=== PATIENT | female | born 1975 | race Caucasian/White ===

== ENCOUNTER 2016-10-16 22:36 | Emergency (ER) | payer OTHER ==
[~2016-10-16] VITALS: Ht 165.1 cm; Wt 91.8 kg
[~2016-10-16 22:36] MED LIST: ANTIVERT 25MG25 MG PO; ATIVAN; AZULFIDINE500 MG/TAB PO; CELEBREX 200MG200 MG; COMBIVENT INH14.7 GM IH; FERROUS SU325 MG/TAB PO; FERROUS SULFATE65 MG PO; FLEXERIL 1010 MG/TAB PO; LEVOTHYROXINE PO; MACROBID100 MG PO; NAPROSYN500 MG PO; OSCAL 500 TAB500 MG PO; PERCOCET 325 MG1 TA2 PO; PRILOSEC 20MG20 MG PO; SYNTHROID 0.10.15 MG PO; SYNTHROID0.175 MG PO; TYLENOL/CODEINE1 ML PO; VALIUM 5MG T5 MG/TAB PO; ZITHROMAX 250M250 MG PO
[2016-10-16 22:37] VITALS: BP 108/63; PULSE 87; TEMP 99.1
[2016-10-16] MEDS ORDERED: PEN-VEE K500 MG PO (22:59)
[2016-10-16] MEDS ORDERED: NORCO 325 MG-51 TAB PO (22:59)
== END 2016-10-16 23:25 | disposition home or self-care (01) ==
LOC: COL.ER 22:36
DX: R68.84 Jaw pain (principal); H92.02 Otalgia, left ear; R51 Headache

== ENCOUNTER → 2016-11-29 | Outpatient (CLI) | payer OTHER ==
[~2016-11-29] MED LIST changes: +NORCO 325 MG-51 TAB PO; +PEN-VEE K500 MG PO
== END ==
LOC: MC.RAD 11-08 13:40
DX: Z12.31 Encounter for screening mammogram for malignant neoplasm of breast (principal)

== ENCOUNTER → 2017-05-02 | Outpatient (CLI) | payer OTHER | LOC: COL.VAS 13:15 | DX: M79.605 Pain in left leg (principal) ==

== ENCOUNTER 2017-09-09 19:27 | Emergency (ER) | payer OTHER ==
[~2017-09-09] VITALS: Ht 165.1 cm; Wt 90.5 kg
[2017-09-09 19:34] VITALS: TEMP 98.2
[2017-09-09] MEDS ORDERED: NORCO 325 MG-51 TAB PO (19:38)
[2017-09-09] MEDS ORDERED: METHOTREXA2.5 MG/TAB (19:38)
[2017-09-09] MEDS ORDERED: FOLIC ACID0.4 MG (19:39)
[2017-09-09] MEDS ORDERED: DESYREL 50MG50 MG PO (19:39)
[2017-09-09 19:59] LABS: COLLECTION METHOD CLEAN CATCH
[2017-09-09 20:00] LABS: BASO # 0.1 (0.0-0.2); BASO % 0.6 % (0.0-2.0); EOS # 0.1 (0.0-0.7); EOS % 1.8 % (0-4.0); GRAN # 4.7 (1.4-6.5); GRAN % 59.9 % (42.2-75.2); HEMATOCRIT 38.1 % (37.0-47.0); HEMOGLOBIN 12.8 g/dl (12.5-16.0); LYMPH # 2.4 (1.2-3.4); MEAN CELL VOLUME 89 fl (80.0-100.0); MEAN CORPUSCULAR HEMOGLOBIN 30 pg (27.0-31.0); MEAN CORPUSCULAR HGB CONC 34 g/dl (33.0-37.0); MEAN PLATELET VOLUME 10.1 fl (7.4-10.4); MONO # 0.5 (0.1-0.6); MONO % 6.3 % (1.7-9.3); PLATELET COUNT 277 K/mm3 (130-400); RED BLOOD COUNT 4.29 M/mm3 (4.10-5.30); REDCELL DISTRIBUTION WIDTH-CV 14.4 % (11.5-14.5)
[2017-09-09 20:04] LABS: PH 7 (5-8); SQUAMOUS EPITHELIAL 0-2 /hpf; URINE APPEARANCE Clear; URINE BACTERIA None Seen /hpf; URINE BILIRUBIN Negative (NEGATIVE); URINE BLOOD 2+ (NEGATIVE); URINE COLOR Colorless; URINE GLUCOSE Negative (NEGATIVE); URINE KETONE Negative (NEGATIVE); URINE LEUKOCYTE ESTERASE Negative (NEGATIVE); URINE NITRATE Negative (NEGATIVE); URINE PROTEIN(semi-quant) Negative (NEGATIVE); URINE RBC 0-2 /hpf; URINE UROBILINOGEN Negative (NEGATIVE)
[2017-09-09 20:38] LABS: ALANINE AMINOTRANSFERASE 29 U/L (9-52); ALKALINE PHOSPHATASE 87 U/L (50-136); ANION GAP 12 mmol/L (7-16); AST,SGOT 36 U/L (15-37); BILIRUBIN,TOTAL 0.5 mg/dL (0.0-1.0); BLOOD UREA NITROGEN 12 mg/dL (7-17); CARBON DIOXIDE 22 mmol/L (22-30); CHLORIDE 106 mmol/L (98-107); CREATININE, serum 0.71 mg/dL (0.52-1.25); GLUCOSE 79 mg/dL (74-106); POTASSIUM 3.9 mmol/L (3.4-5.0); SODIUM 140 mmol/L (137-145); TOTAL PROTEIN 8.1 gm/dL (6.4-8.2)
[2017-09-09 20:48] LABS: TROPONIN-I < 0.012 ng/mL (0.000-0.034)
[2017-09-09] MEDS ORDERED: ANTIVERT 25MG25 MG PO (21:34)
[2017-09-09] MEDS ORDERED: ZOFRAN 4MG T4 MG/TAB PO (21:34)
[2017-09-09 22:04] VITALS: BP 109/80; PULSE 72
== END 2017-09-09 22:05 | disposition home or self-care (01) ==
LOC: COL.ER 19:27
PROVIDERS: Emergency Medicine
DX: H81.392 Other peripheral vertigo, left ear (principal); R07.89 Other chest pain; R20.2 Paresthesia of skin; K21.9 Gastro-esophageal reflux disease without esophagitis; E03.9 Hypothyroidism, unspecified; M06.9 Rheumatoid arthritis, unspecified; F17.210 Nicotine dependence, cigarettes, uncomplicated; Z90.710 Acquired absence of both cervix and uterus; Z98.51 Tubal ligation status; Z90.49 Acquired absence of other specified parts of digestive tract; Z98.890 Other specified postprocedural states
CPT/HCPCS: J1885; J2405; J7030

== ENCOUNTER → 2017-12-30 | Outpatient (CLI) | payer OTHER ==
[~2017-12-30] MED LIST changes: +DESYREL 50MG50 MG PO; +FOLIC ACID0.4 MG; +METHOTREXA2.5 MG/TAB; +ZOFRAN 4MG T4 MG/TAB PO
== END ==
LOC: MC.RAD 12:54
DX: Z12.31 Encounter for screening mammogram for malignant neoplasm of breast (principal)

== ENCOUNTER 2019-02-26 23:57 | Emergency (ER) | payer OTHER ==
[~2019-02-26] VITALS: Ht 165.1 cm; Wt 100.0 kg
[2019-02-27 00:07] VITALS: BP 141/83; TEMP 97.6
[2019-02-27 02:07] VITALS: PULSE 79
== END 2019-02-27 02:05 | disposition home or self-care (01) ==
LOC: COL.ER 23:57
DX: G43.909 Migraine, unspecified, not intractable, without status migrainosus (principal); J45.909 Unspecified asthma, uncomplicated; E03.9 Hypothyroidism, unspecified; F17.210 Nicotine dependence, cigarettes, uncomplicated; Z90.89 Acquired absence of other organs; Z90.710 Acquired absence of both cervix and uterus
CPT/HCPCS: J1200; J1885; J2765; J7030

== ENCOUNTER → 2019-04-23 | Outpatient (CLI) | payer OTHER | LOC: MC.RAD 11:45 | DX: Z12.31 Encounter for screening mammogram for malignant neoplasm of breast (principal) ==

== ENCOUNTER 2019-07-07 10:39 | Emergency (ER) | payer OTHER ==
[~2019-07-07] VITALS: Ht 165.1 cm; Wt 100.0 kg
[2019-07-07 10:48] VITALS: TEMP 96.5
[2019-07-07] MEDS ORDERED: CORGARD20 MG (11:17)
[2019-07-07] MEDS ORDERED: XANAX .25M0.25 MG/TA (11:18)
[2019-07-07] MEDS ORDERED: HUMIRA PEN40 MG/0.4 SQ (11:20)
[2019-07-07] MEDS ORDERED: CORGARD40 MG PO (11:21)
[2019-07-07] MEDS ORDERED: IMITREX100 MG PO (11:22)
[2019-07-07] MEDS ORDERED: FLEXERIL 1010 MG/TAB PO (11:22)
[2019-07-07] MEDS ORDERED: ARAVA 20MG TABL20 MG PO (11:23)
[2019-07-07 12:01] LABS: BASO # 0.1 (0.0-0.2); BASO % 0.9 % (0.0-2.0); EOS # 0.2 (0.0-0.7); EOS % 2.6 % (0-4.0); GRAN # 4.1 (1.4-6.5); GRAN % 61.9 % (42.2-75.2); HEMATOCRIT 42.2 % (37.0-47.0); HEMOGLOBIN 13.8 g/dl (12.5-16.0); LYMPH # 1.8 (1.2-3.4); LYMPH % 26.8 % (20.0-51.0); MEAN CELL VOLUME 89 fl (80.0-100.0); MEAN CORPUSCULAR HEMOGLOBIN 29 pg (27.0-31.0); MEAN CORPUSCULAR HGB CONC 33 g/dl (33.0-37.0); MEAN PLATELET VOLUME 9.7 fl (7.4-10.4); MONO # 0.5 (0.1-0.6); MONO % 7.6 % (1.7-9.3); PLATELET COUNT 250 K/mm3 (130-400); RED BLOOD COUNT 4.73 M/mm3 (4.10-5.30); REDCELL DISTRIBUTION WIDTH-CV 13.2 % (11.5-14.5)
[2019-07-07 12:14] LABS: ALANINE AMINOTRANSFERASE 54 U/L (9-52); ALBUMIN 3.8 gm/dL (3.5-5.0); ALKALINE PHOSPHATASE 83 U/L (50-136); ANION GAP 7 mmol/L (7-16); AST,SGOT 39 U/L (15-37); BILIRUBIN,TOTAL 0.6 mg/dL (0.0-1.0); BLOOD UREA NITROGEN 8 mg/dL (7-17); CALCIUM 8.6 mg/dL (8.4-10.2); CARBON DIOXIDE 25 mmol/L (22-30); CHLORIDE 107 mmol/L (98-107); CREATININE, serum 0.58 (0.52-1.25); GLUCOSE 96 mg/dL (74-106); SODIUM 139 mmol/L (137-145); TOTAL PROTEIN 7.1 gm/dL (6.4-8.2)
[2019-07-07 12:33] LABS: C-REACTIVE PROTEIN < 0.5 mg/dL (0.0-0.9)
[2019-07-07 13:36] LABS: ERYTHROCYTE SEDIMENTATION RATE 5 mm/hr (0-20)
[2019-07-07] MEDS ORDERED: FIORICET 325 MG1 TA1 PO (14:10)
[2019-07-07] MEDS ORDERED: ZOFRAN ODT4 MG PO (14:10)
[2019-07-07 14:20] VITALS: BP 108/65; PULSE 60
== END 2019-07-07 14:25 | disposition home or self-care (01) ==
LOC: COL.ER 10:39
PROVIDERS: Physician Assistant
DX: G43.909 Migraine, unspecified, not intractable, without status migrainosus (principal); M06.9 Rheumatoid arthritis, unspecified; F17.210 Nicotine dependence, cigarettes, uncomplicated
CPT/HCPCS: J0595; J1200; J1885; J2550; J7030

== ENCOUNTER 2019-07-17 22:12 | Emergency (ER) | payer OTHER ==
[~2019-07-17] VITALS: Ht 165.1 cm; Wt 100.0 kg
[~2019-07-17 22:12] MED LIST changes: +ARAVA 20MG TABL20 MG PO; +CORGARD20 MG; +CORGARD40 MG PO; -DESYREL 50MG50 MG PO; +DESYREL DIVIDO150 M1 PO; +FIORICET 325 MG1 TA1 PO; +HUMIRA PEN40 MG/0.4 SQ; +IMITREX100 MG PO; +XANAX .25M0.25 MG/TA; +ZOFRAN ODT4 MG PO
[2019-07-17 22:25] VITALS: TEMP 98
[2019-07-18 00:26] LABS: BASO # 0.1 (0.0-0.2); BASO % 0.8 % (0.0-2.0); EOS # 0.2 (0.0-0.7); EOS % 2.6 % (0-4.0); GRAN # 3.8 (1.4-6.5); GRAN % 45.1 % (42.2-75.2); HEMATOCRIT 41.8 % (37.0-47.0); LYMPH # 3.4 (1.2-3.4); LYMPH % 41.1 % (20.0-51.0); MEAN CELL VOLUME 90 fl (80.0-100.0); MEAN CORPUSCULAR HEMOGLOBIN 30 pg (27.0-31.0); MEAN CORPUSCULAR HGB CONC 34 g/dl (33.0-37.0); MEAN PLATELET VOLUME 9.7 fl (7.4-10.4); MONO # 0.9 (0.1-0.6); MONO % 10.2 % (1.7-9.3); PLATELET COUNT 275 K/mm3 (130-400); RED BLOOD COUNT 4.65 M/mm3 (4.10-5.30); REDCELL DISTRIBUTION WIDTH-CV 13.2 % (11.5-14.5)
[2019-07-18] MEDS ORDERED: PRIL40 PO (00:29)
[2019-07-18] MEDS ORDERED: PRILOSEC 20MG20 MG PO (00:29)
[2019-07-18] MEDS ORDERED: XANAX .25M0.25 MG/TA PO (00:32)
[2019-07-18] MEDS ORDERED: EFFEXOR 3737.5 MG/TA PO (00:32)
[2019-07-18] MEDS ORDERED: FOLIC ACID 11 MG/TA1 PO (00:33)
[2019-07-18 00:34] LABS: ALANINE AMINOTRANSFERASE 44 U/L (9-52); ALBUMIN 4.1 gm/dL (3.5-5.0); ALKALINE PHOSPHATASE 89 U/L (50-136); ANION GAP 7 mmol/L (7-16); AST,SGOT 31 U/L (15-37); BILIRUBIN,TOTAL 0.6 mg/dL (0.0-1.0); BLOOD UREA NITROGEN 7 mg/dL (7-17); CALCIUM 8.5 mg/dL (8.4-10.2); CARBON DIOXIDE 25 mmol/L (22-30); CHLORIDE 107 mmol/L (98-107); CREATININE, serum 0.57 (0.52-1.25); GLUCOSE 84 mg/dL (74-106); POTASSIUM 3.5 mmol/L (3.4-5.0); PROTHROMBIN TIME 11.2 SECONDS (9.7-12.8); SODIUM 138 mmol/L (137-145); TOTAL PROTEIN 7.5 gm/dL (6.4-8.2)
[2019-07-18 00:45] LABS: TROPONIN-I < 0.012 ng/mL (0.000-0.035)
[2019-07-18 02:30] VITALS: BP 152/92; PULSE 63
== END 2019-07-18 02:34 | disposition home or self-care (01) ==
LOC: COL.ER 22:12
PROVIDERS: Emergency Medicine
DX: I10 Essential (primary) hypertension (principal); G43.909 Migraine, unspecified, not intractable, without status migrainosus; F41.9 Anxiety disorder, unspecified; M06.9 Rheumatoid arthritis, unspecified; F17.210 Nicotine dependence, cigarettes, uncomplicated; Z90.710 Acquired absence of both cervix and uterus; Z90.89 Acquired absence of other organs
CPT/HCPCS: J2060

== ENCOUNTER → 2019-12-03 | Outpatient (CLI) | payer OTHER ==
[~2019-12-03] MED LIST changes: +EFFEXOR 3737.5 MG/TA PO; +FOLIC ACID 11 MG/TA1 PO; +PRIL40 PO; +XANAX .25M0.25 MG/TA PO
== END ==
LOC: COL.LAB 15:40
DX: Z20.828 Contact with and (suspected) exposure to other viral communicable diseases (principal)

== ENCOUNTER 2020-01-28 07:06 | Day surgery (SDC) | payer OTHER ==
[~2020-01-28] VITALS: Ht 165.2 cm; Wt 107.0 kg
[2020-01-28] VITALS (9 sets, daily range): BP systolic 103–142; BP diastolic 68–85; PULSE 58–64; TEMP 97.8
[~2020-01-28 07:06] MED LIST changes: -FOLIC ACID0.4 MG; +FOLIC ACID0.4 MG PO
[2020-01-28] MEDS ORDERED: ASPIRIN E.C. 8181 MG PO (07:28)
[2020-01-28] MEDS ORDERED: NORVASC 5MG5 MG/TAB PO (07:28)
[2020-01-28] MEDS ORDERED: CELEXA40 MG PO (07:30)
[2020-01-28 07:48] LABS: HEMATOCRIT 41.5 % (37.0-47.0); HEMOGLOBIN 13.5 g/dl (12.5-16.0); MEAN CELL VOLUME 93 fl (80.0-100.0); MEAN CORPUSCULAR HEMOGLOBIN 30 pg (27.0-31.0); MEAN CORPUSCULAR HGB CONC 33 g/dl (33.0-37.0); MEAN PLATELET VOLUME 10.1 fl (7.4-10.4); PLATELET COUNT 210 K/mm3 (130-400); RED BLOOD COUNT 4.45 M/mm3 (4.10-5.30); REDCELL DISTRIBUTION WIDTH-CV 14.7 % (11.5-14.5)
[2020-01-28 07:53] LABS: INR 0.9 (0.8-3.0); PROTHROMBIN TIME 9.8 SECONDS (9.7-12.8)
[2020-01-28 08:08] LABS: CALCIUM 8.2 mg/dL (8.4-10.2); CREATININE, serum 0.69 (0.52-1.25); POTASSIUM 4.1 mmol/L (3.4-5.0)
--- NOTE | 2020-01-28 08:54 | NUR ---
SEE MERGE DOCUMENTATION FOR MEDICATION ADMINISTRATION TIMES AND INTRA/POST PROCEDURE SEDATION ASSESSMENTS. RIGHT HAND BARBEAU TEST POSITIVE.
--- NOTE | 2020-01-28 09:30 | NUR ---
Report from Stephan DEGROOT. Transferred by bed from bobcat driver/labor. 12 cc in right Tband, good pulses and Cap refill < 3 secs. VSS. Will monitor
--- NOTE | 2020-01-28 11:45 | NUR ---
INTdiscontinued intact. Right Tband deflated of 12 cc air. Discharge instructions given.
--- NOTE | 2020-01-28 12:04 | NUR ---
Transferred to private car by kendra
== END 2020-01-28 12:05 | disposition home or self-care (01) ==
LOC: COL.CAR 07:06
PROVIDERS: Internal Medicine Cardiovascular Disease
DX: R07.9 Chest pain, unspecified (principal); R94.39 Abnormal result of other cardiovascular function study; I10 Essential (primary) hypertension; E03.9 Hypothyroidism, unspecified; G43.909 Migraine, unspecified, not intractable, without status migrainosus; F32.9 Major depressive disorder, single episode, unspecified; F41.0 Panic disorder [episodic paroxysmal anxiety]; Z88.3 Allergy status to other anti-infective agents; Z79.82 Long term (current) use of aspirin; Z79.51 Long term (current) use of inhaled steroids; F17.210 Nicotine dependence, cigarettes, uncomplicated; Z82.3 Family history of stroke; I34.0 Nonrheumatic mitral (valve) insufficiency
CPT/HCPCS: J1644; J2250; J3010; Q9967

== ENCOUNTER 2020-01-28 22:12 | Emergency (ER) | payer OTHER ==
[~2020-01-28] VITALS: Ht 165.1 cm; Wt 104.5 kg
[~2020-01-28 22:12] MED LIST changes: +ASPIRIN E.C. 8181 MG PO; +CELEXA40 MG PO; +NORVASC 5MG5 MG/TAB PO
[2020-01-28 22:20] VITALS: BP 123/85; TEMP 98
[2020-01-28 23:19] VITALS: PULSE 65
== END 2020-01-28 23:20 | disposition home or self-care (01) ==
LOC: COL.ER 22:12
DX: T82.848A Pain due to vascular prosthetic devices, implants and grafts, initial encounter (principal); M25.541 Pain in joints of right hand; E66.9 Obesity, unspecified; E03.9 Hypothyroidism, unspecified; I10 Essential (primary) hypertension; Z95.9 Presence of cardiac and vascular implant and graft, unspecified; Z79.890 Hormone replacement therapy; Z79.82 Long term (current) use of aspirin; Z68.38 Body mass index [BMI] 38.0-38.9, adult

== ENCOUNTER 2020-02-29 19:27 | Emergency (ER) | payer OTHER ==
[~2020-02-29] VITALS: Ht 165.1 cm; Wt 104.5 kg
[2020-02-29 19:31] VITALS: TEMP 97.9
[2020-02-29 20:30] LABS: BASO # 0.1 (0.0-0.2); EOS # 0.2 (0.0-0.7); GRAN # 2.8 (1.4-6.5); GRAN % 57.1 % (42.2-75.2); HEMATOCRIT 39.8 % (37.0-47.0); HEMOGLOBIN 12.9 g/dl (12.5-16.0); LYMPH # 1.2 (1.2-3.4); LYMPH % 25.8 % (20.0-51.0); MEAN CELL VOLUME 92 fl (80.0-100.0); MEAN CORPUSCULAR HEMOGLOBIN 30 pg (27.0-31.0); MEAN CORPUSCULAR HGB CONC 32 g/dl (33.0-37.0); MEAN PLATELET VOLUME 10.1 fl (7.4-10.4); MONO # 0.6 (0.1-0.6); MONO % 11.9 % (1.7-9.3); PLATELET COUNT 170 K/mm3 (130-400); RED BLOOD COUNT 4.32 M/mm3 (4.10-5.30); REDCELL DISTRIBUTION WIDTH-CV 14.2 % (11.5-14.5)
[2020-02-29 20:39] LABS: ALBUMIN 3.5 gm/dL (3.5-5.0); BILIRUBIN,TOTAL 0.4 mg/dL (0.0-1.0); CALCIUM 7.8 mg/dL (8.4-10.2); CREATININE, serum 0.63 (0.52-1.25); POTASSIUM 3.6 mmol/L (3.4-5.0); TOTAL PROTEIN 6.6 gm/dL (6.4-8.2)
[2020-02-29 21:10] VITALS: BP 110/70; PULSE 68
== END 2020-02-29 21:30 | disposition home or self-care (01) ==
LOC: COL.ER 19:27
PROVIDERS: Physician Assistant
DX: K52.9 Noninfective gastroenteritis and colitis, unspecified (principal); I10 Essential (primary) hypertension; E03.9 Hypothyroidism, unspecified; F17.210 Nicotine dependence, cigarettes, uncomplicated; E66.9 Obesity, unspecified; Z20.828 Contact with and (suspected) exposure to other viral communicable diseases; Z90.710 Acquired absence of both cervix and uterus; Z90.49 Acquired absence of other specified parts of digestive tract; Z88.2 Allergy status to sulfonamides; Z79.890 Hormone replacement therapy; Z79.82 Long term (current) use of aspirin
CPT/HCPCS: J2405; J7030

== ENCOUNTER → 2020-09-23 | Outpatient (CLI) | payer OTHER ==
[~2020-09-23] MED LIST changes: +TYLENOL 325MG325 MG PO
== END ==
LOC: MC.RAD 13:05
DX: Z12.31 Encounter for screening mammogram for malignant neoplasm of breast (principal)

== ENCOUNTER 2020-10-06 01:05 | Emergency (ER) | payer OTHER ==
[~2020-10-06] VITALS: Ht 165.1 cm; Wt 104.5 kg
[~2020-10-06 01:05] MED LIST changes: -TYLENOL 325MG325 MG PO
[2020-10-06] MEDS ORDERED: TYLENOL 325MG325 MG PO (02:19)
[2020-10-06 02:55] VITALS: BP 145/91; PULSE 63; TEMP 97.3
== END 2020-10-06 02:55 | disposition home or self-care (01) ==
LOC: COL.ER 01:05
DX: S42.402A Unspecified fracture of lower end of left humerus, initial encounter for closed fracture (principal); Z88.2 Allergy status to sulfonamides; Z88.1 Allergy status to other antibiotic agents; Z98.890 Other specified postprocedural states; W18.2XXA Fall in (into) shower or empty bathtub, initial encounter

== ENCOUNTER 2020-11-02 12:28 | Emergency (ER) | payer OTHER ==
[~2020-11-02] VITALS: Ht 165.1 cm; Wt 100.0 kg
[~2020-11-02 12:28] MED LIST changes: +TYLENOL 325MG325 MG PO
[2020-11-02 12:38] VITALS: BP 137/89; TEMP 97.9
[2020-11-02 14:07] VITALS: PULSE 96
== END 2020-11-02 14:07 | disposition home or self-care (01) ==
LOC: COL.ER 12:28
DX: S96.912A Strain of unspecified muscle and tendon at ankle and foot level, left foot, initial encounter (principal); F17.210 Nicotine dependence, cigarettes, uncomplicated; W19.XXXA Unspecified fall, initial encounter

== ENCOUNTER 2021-09-19 18:21 | Emergency (ER) | payer OTHER ==
[~2021-09-19] VITALS: Ht 165.1 cm; Wt 97.3 kg
[2021-09-19 18:31] VITALS: TEMP 98.4
[2021-09-19 19:04] LABS: STREP SCREEN NEGATIVE
[2021-09-19 19:45] VITALS: BP 140/89; PULSE 50
== END 2021-09-19 19:45 | disposition home or self-care (01) ==
LOC: COL.ER 18:21
PROVIDERS: Nurse Practitioner
DX: L50.9 Urticaria, unspecified (principal); J02.9 Acute pharyngitis, unspecified
CPT/HCPCS: J1100

== ENCOUNTER 2021-12-29 19:30 | Emergency (ER) | payer OTHER ==
[~2021-12-29] VITALS: Ht 165.1 cm; Wt 100.0 kg
[2021-12-29 19:58] LABS: BASO # 0.1 K/mm3 (0.0-0.2); BASO % 1.1 % (0.0-2.0); EOS # 0.1 K/mm3 (0.0-0.7); EOS % 2.4 % (0.0-4.0); GRAN # 2.1 K/mm3 (1.4-6.5); GRAN % 38.3 % (42.2-75.2); HEMATOCRIT 40.8 % (37.0-47.0); HEMOGLOBIN 13.4 g/dl (12.5-16.0); LYMPH # 2.6 K/mm3 (1.2-3.4); LYMPH % 48.6 % (20.0-51.0); MEAN CELL VOLUME 87 fl (80.0-100.0); MEAN CORPUSCULAR HEMOGLOBIN 29 pg (27-31); MEAN CORPUSCULAR HGB CONC 33 g/dl (33.0-37.0); MEAN PLATELET VOLUME 9.7 fl (7.4-10.4); MONO # 0.5 K/mm3 (0.1-0.6); MONO % 9.4 % (1.7-9.3); PLATELET COUNT 308 K/mm3 (130-400); RED BLOOD COUNT 4.68 M/mm3 (4.10-5.30); REDCELL DISTRIBUTION WIDTH-CV 15.2 % (11.5-14.5)
[2021-12-29 20:16] LABS: ALANINE AMINOTRANSFERASE 20 U/L (0-55); ALBUMIN 3.3 gm/dL (3.5-5.0); ALKALINE PHOSPHATASE 107 U/L (40-150); ANION GAP 10 mmol/L (7-16); AST,SGOT 22 U/L (5-34); BILIRUBIN,TOTAL 0.4 mg/dL (0.2-1.2); BLOOD UREA NITROGEN 11 mg/dL (7-19); CALCIUM 8.8 mg/dL (8.4-10.2); CARBON DIOXIDE 23 mmol/L (22-29); CHLORIDE 105 mmol/L (98-107); CREATININE, serum 0.76 mg/dL (0.57-1.11); GLUCOSE 74 mg/dL (70-99); POTASSIUM 3.6 mmol/L (3.5-4.5); SODIUM 138 mmol/L (136-145); TOTAL PROTEIN 7.9 gm/dL (6.2-8.1)
[2021-12-29 20:26] LABS: TROPONIN-I < 0.010 ng/mL (0.00-0.033)
[2021-12-29] MEDS ORDERED: FIORICET 325 MG1 TA1 PO (21:41)
[2021-12-29] MEDS ORDERED: MEDROL 4MG DOSPA4 MG PO (21:41)
[2021-12-29] MEDS ORDERED: TORADOL 10MG TA10 MG PO (21:41)
[2021-12-29] MEDS ORDERED: ZOFRAN 4MG T4 MG/TAB PO (21:43)
[2021-12-29 21:58] VITALS: BP 162/91; PULSE 56; TEMP 97.4
== END 2021-12-29 22:00 | disposition home or self-care (01) ==
LOC: COL.ER 19:30
PROVIDERS: Emergency Medicine
DX: R07.89 Other chest pain (principal); G43.909 Migraine, unspecified, not intractable, without status migrainosus; F17.210 Nicotine dependence, cigarettes, uncomplicated
CPT/HCPCS: J1885; J2405

== ENCOUNTER → 2022-08-04 | Outpatient (CLI) | payer OTHER ==
[~2022-08-04] MED LIST changes: +MEDROL 4MG DOSPA4 MG PO; +TORADOL 10MG TA10 MG PO
[2022-08-04 14:25] LABS: ALANINE AMINOTRANSFERASE 23 U/L (0-55); ALBUMIN 3.3 gm/dL (3.5-5.0); ALKALINE PHOSPHATASE 100 U/L (40-150); ANION GAP 8 mmol/L (7-16); AST,SGOT 21 U/L (5-34); BILIRUBIN,TOTAL 0.4 mg/dL (0.2-1.2); BLOOD UREA NITROGEN 8 mg/dL (7-19); CALCIUM 8.7 mg/dL (8.4-10.2); CARBON DIOXIDE 25 mmol/L (22-29); CHLORIDE 106 mmol/L (98-107); CREATININE, serum 0.79 mg/dL (0.57-1.11); GLUCOSE 89 mg/dL (70-99); POTASSIUM 3.7 mmol/L (3.5-4.5); SODIUM 139 mmol/L (136-145); TOTAL PROTEIN 7.5 gm/dL (6.2-8.1)
[2022-08-04 14:36] LABS: BASO # 0.1 K/mm3 (0.0-0.2); BASO % 0.8 % (0.0-2.0); EOS # 0.1 K/mm3 (0.0-0.7); EOS % 1.4 % (0.0-4.0); GRAN # 3.9 K/mm3 (1.4-6.5); GRAN % 59.8 % (42.2-75.2); HEMATOCRIT 40.3 % (37.0-47.0); HEMOGLOBIN 13.2 g/dl (12.5-16.0); LYMPH # 1.6 K/mm3 (1.2-3.4); LYMPH % 25.5 % (20.0-51.0); MEAN CELL VOLUME 90 fl (80.0-100.0); MEAN CORPUSCULAR HEMOGLOBIN 30 pg (27-31); MEAN CORPUSCULAR HGB CONC 33 g/dl (33.0-37.0); MEAN PLATELET VOLUME 9.8 fl (7.4-10.4); MONO # 0.8 K/mm3 (0.1-0.6); PLATELET COUNT 276 K/mm3 (130-400); RED BLOOD COUNT 4.48 M/mm3 (4.10-5.30); REDCELL DISTRIBUTION WIDTH-CV 13.4 % (11.5-14.5)
[2022-08-04 14:45] LABS: TSH w REFLEX 1.267 uIU/mL (0.350-4.940)
[2022-08-04 14:47] LABS: TROPONIN-I < 0.010 ng/mL (0.00-0.033)
== END ==
LOC: COL.LAB 13:29
PROVIDERS: Student in an Organized Health Care Education/Training Program
DX: R07.9 Chest pain, unspecified (principal); R53.83 Other fatigue; R06.02 Shortness of breath

== ENCOUNTER 2023-08-21 18:53 | Emergency (ER) | payer OTHER ==
[~2023-08-21] VITALS: Ht 165.1 cm; Wt 118.6 kg
[~2023-08-21 18:53] MED LIST changes: +NORFLEX 10100 MG/TAB PO
[2023-08-21 18:59] VITALS: TEMP 98.4
[2023-08-21] MEDS ORDERED: NS 1,000 ML IV ONE (19:45)
[2023-08-21 20:00] LABS: BASO % 0.8 % (0.0-2.0); EOS # 0.3 K/mm3 (0.0-0.7); EOS % 6.2 % (0.0-4.0); GRAN # 2.8 K/mm3 (1.4-6.5); GRAN % 53.9 % (42.2-75.2); HEMATOCRIT 38.3 % (37.0-47.0); HEMOGLOBIN 12.3 g/dl (12.5-16.0); LYMPH # 1.6 K/mm3 (1.2-3.4); LYMPH % 31.5 % (20.0-51.0); MEAN CELL VOLUME 89 fl (80.0-100.0); MEAN CORPUSCULAR HEMOGLOBIN 28 pg (27-31); MEAN CORPUSCULAR HGB CONC 32 g/dl (33.0-37.0); MEAN PLATELET VOLUME 9.5 fl (7.4-10.4); MONO # 0.4 K/mm3 (0.1-0.6); MONO % 7.4 % (1.7-9.3); PLATELET COUNT 286 K/mm3 (130-400); RED BLOOD COUNT 4.33 M/mm3 (4.10-5.30); REDCELL DISTRIBUTION WIDTH-CV 13.5 % (11.5-14.5)
[2023-08-21] MEDS ORDERED: Ketorolac 30 MG/ML VIAL IV ONE (20:00)
[2023-08-21 20:11] LABS: ANION GAP 12 mmol/L (7-16); BLOOD UREA NITROGEN 14 mg/dL (7-19); CALCIUM 9.1 mg/dL (8.4-10.2); CARBON DIOXIDE 23 mmol/L (22-29); CHLORIDE 104 mmol/L (98-107); CREATININE, serum 1.01 mg/dL (0.57-1.11); GLUCOSE 117 mg/dL (70-99); POTASSIUM 3.2 mmol/L (3.5-4.5); SODIUM 139 mmol/L (136-145)
[2023-08-21 20:21] LABS: TROPONIN-I < 0.010 ng/mL (0.00-0.033)
[2023-08-21] MEDS ORDERED: fentaNYL 50 MCG/ML 2 ML VIAL IV ONE (20:45)
[2023-08-21] MEDS ORDERED: Iohexol 350 - 100 ML VIAL IV ONE (22:17)
[2023-08-21] MEDS ORDERED: NS 50 ML IV ONE (22:18)
[2023-08-21] MEDS ORDERED: FLEXERIL 1010 MG/TAB PO (22:23)
[2023-08-21 22:56] VITALS: BP 158/96; PULSE 60
== END 2023-08-21 22:56 | disposition home or self-care (01) ==
LOC: COL.ER 18:53
PROVIDERS: Internal Medicine
DX: S16.1XXA Strain of muscle, fascia and tendon at neck level, initial encounter (principal); S29.012A Strain of muscle and tendon of back wall of thorax, initial encounter; X50.0XXA Overexertion from strenuous movement or load, initial encounter
CPT/HCPCS: J1885; J3010; J3360; J7030; Q9967

== ENCOUNTER 2024-01-08 13:08 | Emergency (ER) | payer OTHER ==
[~2024-01-08] VITALS: Ht 165.1 cm; Wt 121.8 kg
[2024-01-08 13:20] VITALS: TEMP 98.3
[2024-01-08] MEDS ORDERED: Ketorolac 15 MG/ML VIAL IV ONE (14:45)
[2024-01-08] MEDS ORDERED: LR 1,000 ML IV ONE (14:45)
[2024-01-08] MEDS ORDERED: diphenhydrAMINE 50 MG/ML 1 ML VIAL IV ONE (14:45)
[2024-01-08 15:13] LABS: BASO # 0.1 K/mm3 (0.0-0.2); BASO % 0.7 % (0.0-2.0); EOS # 0.1 K/mm3 (0.0-0.7); EOS % 1.3 % (0.0-4.0); GRAN # 4.4 K/mm3 (1.4-6.5); GRAN % 61.5 % (42.2-75.2); HEMOGLOBIN 12.3 g/dl (12.5-16.0); LYMPH # 1.9 K/mm3 (1.2-3.4); LYMPH % 27.1 % (20.0-51.0); MEAN CELL VOLUME 86 fl (80.0-100.0); MEAN CORPUSCULAR HEMOGLOBIN 29 pg (27-31); MEAN CORPUSCULAR HGB CONC 33 g/dl (33.0-37.0); MEAN PLATELET VOLUME 9.1 fl (7.4-10.4); MONO # 0.6 K/mm3 (0.1-0.6); PLATELET COUNT 338 K/mm3 (130-400); RED BLOOD COUNT 4.28 M/mm3 (4.10-5.30); REDCELL DISTRIBUTION WIDTH-CV 12.9 % (11.5-14.5)
[2024-01-08 15:14] LABS: HEMATOCRIT 36.9 % (37.0-47.0)
[2024-01-08 15:32] LABS: ALBUMIN 3.4 g/dL (3.5-5.0); BILIRUBIN,TOTAL 0.7 mg/dL (0.2-1.2); CALCIUM 8.9 mg/dL (8.4-10.2); CREATININE, serum 0.87 mg/dL (0.57-1.11); POTASSIUM 3.1 mEq/L (3.5-4.5); TOTAL PROTEIN 7.7 g/dl (6.2-8.1)
[2024-01-08 15:49] VITALS: BP 128/84; PULSE 88
== END 2024-01-08 15:49 | disposition home or self-care (01) ==
LOC: COL.ER 13:08
PROVIDERS: Family Medicine
DX: G43.909 Migraine, unspecified, not intractable, without status migrainosus (principal)
CPT/HCPCS: J0780; J1200; J1885; J7120